=== PATIENT | male | born 1955 | race Caucasian/White ===

== ENCOUNTER → 2016-10-13 | Outpatient (CLI) | payer OTHER ==
[~2016-10-13] MED LIST: AUGM500T7 OR; LISI-357 PO; LORTA5 PO; PRED5SOL OR
== END ==
LOC: CLAB 10:00
PROVIDERS: ATTEND Specialist
DX: B18.2 Chronic viral hepatitis C (principal); M02.84 Other reactive arthropathies, hand; R60.0 Localized edema; M12.9 Arthropathy, unspecified; F43.21 Adjustment disorder with depressed mood; E29.1 Testicular hypofunction
CPT/HCPCS: 36415; 82140

== ENCOUNTER 2016-12-23 12:03 | Observation (INO) | payer OTHER ==
[~2016-12-23] VITALS: Ht 170.2 cm; Wt 80.0 kg
[2016-12-23] VITALS (7 sets, daily range): BP systolic 130–155; BP diastolic 65–92; PULSE 61–104; RESP 16–20; TEMP 97.5–99.3; O2SAT 95–99
[2016-12-23 12:54] LABS: AUTOMATED NEUTROPHIL # 7.8 TH/MM3 (1.8-7.7); BASOPHIL # 0.1 TH/MM3 (0-0.2); BASOPHIL % 0.5 % (0.0-2.0); EOSINOPHIL # 0.1 TH/MM3 (0-0.4); EOSINOPHIL % 0.7 % (0.0-4.0); HEMATOCRIT 43.4 % (39.0-51.0); HEMO FLAGS DIFF FINAL; LYMPH % 15.8 % (9.0-44.0); LYMPHOCYTE # 1.7 TH/MM3 (1.0-4.8); MEAN CELL VOLUME 82.5 FL (80.0-100.0); MEAN CORPUSCULAR HEMOGLOBIN 27.5 PG (27.0-34.0); MEAN CORPUSCULAR HGB CONC 33.3 % (32.0-36.0); MONO % 12.2 % (0.0-8.0); NEUT % 70.8 % (16.0-70.0); PLATELET COUNT 247 TH/MM3 (150-450); RED BLOOD COUNT 5.26 MIL/MM3 (4.50-5.90); RED CELL DISTRIBUTION WIDTH 13.9 % (11.6-17.2)
[2016-12-23 13:03] LABS: INTERNATIONAL NORMALIZED RATIO 1.1 RATIO; PROTHROMBIN TIME - PATIENT 11.7 SEC (9.8-11.6)
--- NOTE | 2016-12-23 13:12 | RADRPT ---
EXAM DATE/TIME: 12/23/2016 13:00 [facility] COMPARISON: No previous studies available for comparison. INDICATIONS : Chest pain MEDICAL HISTORY : Hepatitis C. SURGICAL HISTORY : None. ENCOUNTER: Initial ACUITY: 2 days PAIN SCORE: 7/10 LOCATION: chest FINDINGS: PA and lateral views of the chest demonstrate the lungs to be symmetrically aerated without evidence of mass, infiltrate or effusion. The cardiomediastinal contours are unremarkable. Osseous structure s are intact. CONCLUSION: No acute disease. Derrick Aparicio MD on December 23, 2016 at 13:10 Board Certified Radiologist. This report was verified electronically.
[2016-12-23 13:15] LABS: ANION GAP 5 MEQ/L (5-15); BICARBONATE 27.6 MEQ/L (21.0-32.0); BLOOD UREA NITROGEN 19 MG/DL (7-18); CHLORIDE 104 MEQ/L (98-107); GLOMERULAR FILTRATION RATE 91 ML/MIN (>89); POTASSIUM 3.9 MEQ/L (3.5-5.1); SODIUM (NA) 137 MEQ/L (136-145)
[2016-12-23 13:36] LABS: CREATINE KINASE 39 U/L (39-308)
[2016-12-23] MEDS ORDERED: ASPI81CH37 CHEW (13:38)
[2016-12-23] MEDS ORDERED: [UNRECOGNIZED DRUG - OTHER] (13:38)
[2016-12-23] MEDS ORDERED: BUPR100CR PO (13:38)
--- NOTE | 2016-12-23 13:39 | PD ---
HPI Chief Complaint: Chest Pain Time Seen by Provider: 13:36 Travel History International Travel<30 days: No Contact w/Intl Traveler<30days: No Traveled to known affect area: No History of Present Illness HPI 61-year-old male patient presents to the emergency room for evaluation of chest pain that started last night. Patient states the pain makes him feel like he can't take a deep breath. Patient also reports that his left lower leg is swollen. The pain does not radiate anywhere and is constant and sharp in nature. Patient denies any fevers, chills, malaise, dysuria, diaphoretic episodes, abdominal pain, nausea, vomiting, diarrhea or lightheadedness. The patient had a stress test approximately 10 years ago that he believes was normal. Patient denies any history of AR, CVA/TIA or PE. Patient states his only major medical history is hepatitis C and he just recently started a medication regimen for treatment. PFSH Past Medical History Arthritis: Yes (RHEUMATOID) Autoimmune Disease: Yes Blood Disorders: No Depression: Yes Cancer: No Cardiovascular Problems: Yes ("LEFT BUNDLE BRANCH BLOCK") Endocrine: No GERD: Yes Hiatal Hernia: Yes (INGUINAL HERNIAS) Hypertension: Yes Immune Disorder: No Inguinal Hernia: Yes Musculoskeletal: No Neurologic: No Reproductive: No Immunizations Current: No Past Surgical History Abdominal Surgery: Yes (BILATERAL HERNIA REPAIR FEB 2011) Endocrine Surgery: Yes (LIVER BIOPSY) Pacemaker: No Other Surgery: Yes Social History Alcohol Use: No Tobacco Use: No Substance Use: No Allergies-Medications (Allergen,Severity, Reaction): Coded Allergies: No Known Allergies (Verified , 12/23/16) Reported Meds & Prescriptions Reported Meds & Active Scripts Active Reported Aspirin Low Dose (Aspirin) 81 Mg Chew 81 Mg CHEW DAILY [[place]] DAILY Wellbutrin SR 12 HR (Bupropion HCl) 100 Mg Tab Unknown Dose PO Q12HR Review of Systems Except as stated in HPI: all other systems reviewed are Neg Physical Exam Narrative GENERAL: Well-nourished well-developed 51-year-old male in no acute distress SKIN: Focused skin assessment warm/dry. HEAD: Atraumatic. Normocephalic. EYES: Pupils equal and round. No scleral icterus. No injection or drainage. ENT: No nasal bleeding or discharge. Mucous membranes pink and moist. NECK: Trachea midline. No JVD. CARDIOVASCULAR: Regular rate and rhythm. No murmur appreciated. RESPIRATORY: No accessory muscle use. Clear to auscultation. Breath sounds equal bilaterally. GASTROINTESTINAL: Abdomen soft, non-tender, nondistended. Hepatic and splenic margins not palpable. MUSCULOSKELETAL: No obvious deformities. No clubbing. No cyanosis. No edema. NEUROLOGICAL: Awake and alert. No obvious cranial nerve deficits. Motor grossly within normal limits. Normal speech. PSYCHIATRIC: Appropriate mood and affect; insight and judgment normal. Data Data Last Documented VS Vital Signs Date Time Temp Pulse Resp B/P (MAP) Pulse Ox O2 Delivery O2 Flow Rate FiO2 12/23/16 13:42 70 20 130/65 (86) 97 12/23/16 13:41 Room Air 12/23/16 12:04 99.3 Orders Orders Electrocardiogram (12/23/16 12:13) Complete Blood Count With Diff (12/23/16 12:13) Basic Metabolic Panel (Bmp) (12/23/16 12:13) Ckmb (Isoenzyme) Profile (12/23/16 12:13) Troponin I (12/23/16 12:13) Iv Access Insert/Monitor (12/23/16 12:13) Ecg Monitoring (12/23/16 12:13) Oxygen Administration (12/23/16 12:13) Oximetry (12/23/16 12:13) Prothrombin Time / Inr (Pt) (12/23/16 12:13) Chest, Pa & Lat (12/23/16 12:13) Ct Pulmonary Angiogram (12/23/16 13:41) Us Leg Venous Doppler Bilat (12/23/16 ) Iohexol 350 Inj (Omnipaque 350 Inj) (12/23/16 14:34) Aspirin (Aspirin) (12/23/16 15:15) Admit Order (Ed Use Only) (12/23/16 16:14) Labs Laboratory Tests Test 12/23/16 12:45 White Blood Count 11.0 TH/MM3 Red Blood Count 5.26 MIL/MM3 Hemoglobin 14.5 GM/DL Hematocrit 43.4 % Mean Corpuscular Volume 82.5 FL Mean Corpuscular Hemoglobin 27.5 PG Mean Corpuscular Hemoglobin Concent 33.3 % Red Cell Distribution Width 13.9 % Platelet Count 247 TH/MM3 Mean Platelet Volume 8.5 FL Neutrophils (%) (Auto) 70.8 % Lymphocytes (%) (Auto) 15.8 % Monocytes (%) (Auto) 12.2 % Eosinophils (%) (Auto) 0.7 % Basophils (%) (Auto) 0.5 % Neutrophils # (Auto) 7.8 TH/MM3 Lymphocytes # (Auto) 1.7 TH/MM3 Monocytes # (Auto) 1.3 TH/MM3 Eosinophils # (Auto) 0.1 TH/MM3 Basophils # (Auto) 0.1 TH/MM3 CBC Comment DIFF FINAL Differential Comment Prothrombin Time 11.7 SEC Prothromb Time International Ratio 1.1 RATIO Blood Urea Nitrogen 19 MG/DL Creatinine 0.85 MG/DL Random Glucose 118 MG/DL Calcium Level 9.7 MG/DL Sodium Level 137 MEQ/L Potassium Level 3.9 MEQ/L Chloride Level 104 MEQ/L Carbon Dioxide Level 27.6 MEQ/L Anion Gap 5 MEQ/L Estimat Glomerular Filtration Rate 91 ML/MIN Total Creatine Kinase 39 U/L Troponin I LESS THAN 0.02 NG/ML MDM Medical Decision Making Medical Screen Exam Complete: Yes Emergency Medical Condition: Yes Medical Record Reviewed: Yes Differential Diagnosis Differential diagnosis included are not limited to PE, AR, angina, pneumonia, DVT Narrative Course 61-year-old male presents emergency department for evaluation of chest pain that started last night. Patient states the pain made him feel like he can't take a deep breath. Patient also has unilateral swelling of his left leg. Patient denies any fevers, cough, headache, dizziness, hemoptysis, or history of blood clots. Patient recently started a medication regimen to treat his hepatitis C but otherwise does not take any daily medication. CBC, BMP, PT/INR , troponin, CK, chest x-ray, EKG, CT pulmonary angiogram, ultrasound of bilateral lower extremities ordered and pending. CBC shows no acute abnormalities BMP shows no acute abnormalities PT/INR shows no acute abnormalities TROP less than 0.02 CK within normal limits at 39 EKG shows sinus rhythm with first-degree AV block and left axis deviation heart rate 84 CXR shows no acute disease US OF SUMAN LOWER EXTREMITIES shows no evidence of DVT in either right or left lower extremity CTA 1. No CT evidence for pulmonary artery embolism. 2. Mild pulmonary artery enlargement of the main pulmonary artery which may reflect some degree of pulmonary artery hypertension. 3. Scattered peripheral subpleural chronic interstitial changes in the anterior upper lobes and lung bases bilaterally. Overall distribution and extent of abnormality is nonspecific but may reflect developing interstitial fibrosis. Consider pulmonary consultation on an outpatient basis. Based on patient's symptoms, clinical presentation, vital sign review, EKG and lab results it is clinically appropriate to admit the patient to the chest pain center for further evaluation, workup and cardiac stress test. Patient will be admitted to the chest pain. Diagnosis Primary Impression: Chest pain Qualified Codes: R07.9 - Chest pain, unspecified Admitting Information Admitting Physician Requests: Cassi Momin M[employer]I OPERATION MACHINE OPERATOR Dec 23, 2016 13:39
[2016-12-23] MEDS ORDERED: IOHEXOL 350 MG/ML 10 ML VIAL (for RAD DIAG) IVCONTRAST ONE (14:34)
[2016-12-23] MEDS ORDERED: ASPIRIN 325 MG TAB PO ONE (15:15)
--- NOTE | 2016-12-23 15:26 | RADRPT ---
EXAM DATE/TIME: 12/23/2016 14:15 [facility] COMPARISON: No previous studies available for comparison. INDICATIONS : Chest pain, worse on inspiration. IV CONTRAST: 74 cc Omnipaque 350 (iohexol) IV RADIATION DOSE: 15.48 CTDIvol (mGy) MEDICAL HISTORY : Hypertension. SURGICAL HISTORY : None. ENCOUNTER: Initial ACUITY: 2 days PAIN SCALE: 4/10 LOCATION: Bilateral chest TECHNIQUE: Volumetric scanning of the chest was performed using a pulmonary embolism protocol MIP images were re constructed. Using automated exposure control and adjustment of the mA and/or kV according to patien t size, radiation dose was kept as low as reasonably achievable to obtain optimal diagnostic quality images. DICOM format image data is available electronically for review and comparison. Follow-up recommendations for detected pulmonary nodules are based at a minimum on nodule size and pa tient risk factors according to Fleischner Society Guidelines. FINDINGS: PULMONARY ARTERIES: No filling defects are seen in the pulmonary arteries through the segmental level. Mild prominence of the main pulmonary artery measuring up to 3.4 cm. LUNGS: Scattered peripheral subpleural intralobular septal thickening and and minimal associated ground glas s opacities in the anterior upper lobes and near lung bases bilaterally. PLEURAE: There is no pleural thickening or pleural effusion. MEDIASTINUM: There is good visualization of the great vessels of the middle mediastinum. No evidence of mediastin al or hilar adenopathy/mass. MUSCULOSKELETAL: Within normal limits for patient age. MISCELLANEOUS: The visualized upper abdominal organs demonstrate no acute abnormality. CONCLUSION: 1. No CT evidence for pulmonary artery embolism. 2. Mild pulmonary artery enlargement of the main pulmonary artery which may reflect some degree of pu lmonary artery hypertension. 3. Scattered peripheral subpleural chronic interstitial changes in the anterior upper lobes and lung bases bilaterally. Overall distribution and extent of abnormality is nonspecific but may reflect deve loping interstitial fibrosis. Consider pulmonary consultation on an outpatient basis. Alexei Desai MD on December 23, 2016 at 15:17 Board Certified Radiologist. This report was verified electronically.
--- NOTE | 2016-12-23 15:59 | RADRPT ---
EXAM DATE/TIME: 12/23/2016 15:06 [facility] COMPARISON: No previous studies available for comparison. EXTERNAL COMPARISON : [facility], US LEG, RIGHT VENOUS DOPPLER, November 12, 2011 INDICATIONS : Bilateral leg edema. MEDICAL HISTORY : Hypertension. Hepatitis C. Rheumatoid arthritis. Left bundle branch block. Inguinal hernias. GERD. SURGICAL HISTORY : Liver biopsy. Bilateral hernia repair. ENCOUNTER: Initial ACUITY: 4 - 6 days PAIN SCORE: 7/10 LOCATION: Bilateral leg. TECHNIQUE: Venous ultrasound of the left and right leg was performed from the inguinal ligament to the proximal calf. Real-time, color Doppler and spectral tracing, compression and augmentation techniques were us ed. FINDINGS: RIGHT LEG: There is normal compressibility of the deep venous system from the inguinal region to the proximal ca lf. No echogenic clot is seen in the lumen of the common femoral, femoral, popliteal, and posterior tibial veins. There is a normal response of the venous system to proximal and distal augmentation an d respiration. LEFT LEG: There is normal compressibility of the deep venous system from the inguinal region to the proximal ca lf. No echogenic clot is seen in the lumen of the common femoral, femoral, popliteal, and posterior tibial veins. There is a normal response of the venous system to proximal and distal augmentation an d respiration. CONCLUSION: No evidence of lower extremity DVT on the right or left. Shaw Viera MD on December 23, 2016 at 15:56 Board Certified Radiologist. This report was verified electronically.
[2016-12-23] MEDS ORDERED: ACETAMINOPHEN 500 MG CPLT PO PRN (17:15)
[2016-12-23] MEDS ORDERED: ONDANSETRON HCL 4 MG/2 ML VIAL IV PUSH PRN (17:15)
[2016-12-23] MEDS ORDERED: NITROGLYCERIN 0.4 MG SL 25 TABS/BTL SL PRN (17:15)
[2016-12-23] MEDS ORDERED: VALA500T PO (20:23)
[2016-12-23] MEDS ORDERED: OXYC-392 PO (20:26)
[2016-12-23] MEDS ORDERED: MELO-1 PO (20:26)
[2016-12-23] MEDS ORDERED: MAVYRET PO (20:40)
[2016-12-23 21:31] LABS: CREATINE KINASE 56 U/L (39-308)
[2016-12-24 00:25] VITALS: PULSE 58
[2016-12-24 00:50] LABS: CREATINE KINASE 80 U/L (39-308)
[2016-12-24 04:02] VITALS: PULSE 61
[2016-12-24 04:46] VITALS: BP 141/75; PULSE 62; RESP 18; TEMP 98.1; O2SAT 96
[2016-12-24 06:55] VITALS: PULSE 57
--- NOTE | 2016-12-24 08:11 | HHI.HP ---
HPI Primary Care Physician Pam Razo MD Chief Complaint Chest pain History of Present Illness 61-year-old male with history of hepatitis C, GERD, and known left bundle branch block presents to emergency room for further evaluation of chest pain. Onset Tuesday evening around 7 PM. Location substernal. Characterized as a constant "soreness." No radiation of pain. No associated symptoms of nausea, vomiting, dyspnea or diaphoresis. No known precipitating factors. Relieving factors time, discomfort improving slowly over last 2 days. Denies any similar pain in the past. No particular movements or position makes pain better or worse. Taking a deep breath makes pain worse, this is also improving. Reports when pain first began he could only take small shallow breath due to pain. Now can take larger breaths before experiencing pain. Review of Systems General: No fatigue,weakness, fever, chills, recent illness, or change in appetite. Has been in his general state of health. Recently began hepatitis C curative medication. HEENT: No MOHAMUD, no vision changes CV: Current chest pain as stated above. No palpitations, intermittent leg pain , or dizziness. RESP: No SOB, cough, wheeze, or recent URI. GI: No nausea, vomiting, or bowel changes. No unintentional weight gain or weight loss : No dysuria EXT: No lower leg edema MS: No discomfort or change in ROM, no recent trauma, injury, or fall NEURO: No change in memory, dizziness, difficulty with balance, LOC, motor/ sensory deficits PSYCH: History of depression reports stable on current medication regimen. No current anxiety or situational stress. SKIN: No rashes, no concerning lesions Past Family Social History Allergies: Coded Allergies: No Known Allergies (Verified , 12/23/16) Past Medical History Hepatitis C, GERD, colon polyps, depression, rheumatoid arthritis, small bowel obstruction (completed medically) Past Surgical History None Reported Medications Reported Meds & Active Scripts Active Reported [mavyret] 40-100 Mg PO DAILY Meloxicam 15 Mg Tab 15 Mg PO DAILY Oxycodone (Oxycodone HCl) 5 Mg Tab 5 Mg PO DAILY PRN Valacyclovir (Valacyclovir HCl) 500 Mg Tab 500 Mg PO DAILY Aspirin Low Dose (Aspirin) 81 Mg Chew 81 Mg CHEW MOWEFR Wellbutrin SR 12 HR (Bupropion HCl) 100 Mg Tab 150 Mg PO Q12HR Active Ordered Medications Current Medications Medications (Trade) Dose Ordered Sig/Marty Route Start Time Stop Time Status Last Admin (Tylenol) 500 mg Q4H PRN PO 12/23/16 17:15 (Zofran Inj) 4 mg Q6H PRN IV PUSH 12/23/16 17:15 (Nitrostat Sl) 0.4 mg Q5M PRN SL 12/23/16 17:15 (Aspirin) 325 mg DAILY PO 12/24/16 09:00 Family History Father age 72 history of CHF. Mother age 70 of lung cancer. Sr. last year lung cancer, she had a congenital heart defect. Social History No known diabetes, or near he artery disease, hypertension, or hyperlipidemia. Former smoker quit 6 years ago prior to quitting smoking 1 pack daily. No alcohol since diagnosis of hepatitis C and 2008. Past cardiac testing 10 years ago exercise stress test unremarkable. Patient's field cashier is Dr. Skinny Mccormack, seen 3 months ago. No recent stress testing. Physical Exam Vital Signs Vital Signs Date Time Temp Pulse Resp B/P (MAP) Pulse Ox O2 Delivery O2 Flow Rate FiO2 12/24/16 06:55 57 12/24/16 04:46 98.1 62 18 141/75 (97) 96 12/24/16 04:02 61 12/24/16 00:25 58 12/23/16 23:53 98.1 63 18 130/69 (89) 95 12/23/16 20:37 61 12/23/16 20:17 98.0 66 18 143/72 (95) 97 12/23/16 18:22 97.5 62 16 151/71 (97) 96 12/23/16 13:42 70 20 130/65 (86) 97 12/23/16 13:41 97 Room Air 12/23/16 13:31 73 20 99 Room Air 12/23/16 13:29 64 20 155/80 (105) 99 12/23/16 12:04 99.3 104 20 137/92 (107) 97 Room Air Physical Exam GENERAL: Alert WN, WD, NAD, pleasant, male HEAD: NC, AT EYES: Sclera clear, conjunctiva without injection ENT: Mucous membranes pink and moist NECK: Supple, no masses, trachea midline CV: RRR, without murmur, rub, gallop, no JVD, S1-S2 no S3-S4. No carotid bruits. RESP: Clear lungs throughout bilateral, no crackles, wheeze, rhonchi, symmetrical chest rise, nonlabored, able to speak in full sentences ABD: Soft, NT, ND, no masses, positive bowel tones BACK: No scoliosis EXT: Pulses +24, no dependent edema MS: Normal tone 4 extremities, nontender, no obvious deformities, full range of motion NEURO: CN II through CN XII grossly intact, motor strength 5/5 PSYCH: A+O 3, flat affect, appropriate speech, appropriate mood and affect, insight and judgment SKIN: Normal turgor, normal texture, no lesions, no rashes, brisk cap refill, even hair distribution Laboratory Laboratory Tests Test 12/23/16 12:45 12/23/16 20:07 12/23/16 23:30 White Blood Count 11.0 Red Blood Count 5.26 Hemoglobin 14.5 Hematocrit 43.4 Mean Corpuscular Volume 82.5 Mean Corpuscular Hemoglobin 27.5 Mean Corpuscular Hemoglobin Concent 33.3 Red Cell Distribution Width 13.9 Platelet Count 247 Mean Platelet Volume 8.5 Neutrophils (%) (Auto) 70.8 Lymphocytes (%) (Auto) 15.8 Monocytes (%) (Auto) 12.2 Eosinophils (%) (Auto) 0.7 Basophils (%) (Auto) 0.5 Neutrophils # (Auto) 7.8 Lymphocytes # (Auto) 1.7 Monocytes # (Auto) 1.3 Eosinophils # (Auto) 0.1 Basophils # (Auto) 0.1 CBC Comment DIFF FINAL Differential Comment Prothrombin Time 11.7 Prothromb Time International Ratio 1.1 Blood Urea Nitrogen 19 Creatinine 0.85 Random Glucose 118 Calcium Level 9.7 Sodium Level 137 Potassium Level 3.9 Chloride Level 104 Carbon Dioxide Level 27.6 Anion Gap 5 Estimat Glomerular Filtration Rate 91 Total Creatine Kinase 39 56 80 Troponin I LESS THAN 0.02 LESS THAN 0.02 LESS THAN 0.02 Result Diagram: 12/23/16 1245 12/23/16 1245 Imaging Last Impressions Myocardial Perfusion Scan Nuc Med 12/24/16 0000 Signed Impressions: Service Date/Time: Saturday, December 24, 2016 10:39 - CONCLUSION: Fixed defects apex with mild hypokinesis. Negative for stress-induced ischemia. RISK CATEGORY: Low (<1%% Annual Mortality Rate) Faisal White MD FACR CT Angiography 12/23/16 1341 Signed Impressions: Service Date/Time: November 14:15 - CONCLUSION: 1. No CT evidence for pulmonary artery embolism. 2. Mild pulmonary artery enlargement of the main pulmonary artery which may reflect some degree of pulmonary artery hypertension. 3. Scattered peripheral subpleural chronic interstitial changes in the anterior upper lobes and lung bases bilaterally. Overall distribution and extent of abnormality is nonspecific but may reflect developing interstitial fibrosis. Consider pulmonary consultation on an outpatient basis. Alexei Desai MD Chest X-Ray 12/23/16 1213 Signed Impressions: Service Date/Time: November 13:00 - CONCLUSION: No acute disease. Derrick Aparicio MD Lower Extremity Ultrasound 12/23/16 0000 Signed Impressions: Service Date/Time: November 15:06 - CONCLUSION: No evidence of lower extremity DVT on the right or left. Shaw Viera MD Course EKG Normal sinus bradycardia, first-degree AV block, left bundle branch block Caprini VTE Risk Assessment Caprini VTE Risk Assessment: No/Low Risk (score <= 1) Caprini Risk Assessment Model Point Value = 1 Point Value = 2 Point Value = 3 Point Value = 5 Age 41-60 Minor surgery BMI > 25 kg/m2 Swollen legs Varicose veins or History of unexplained or recurrent spontaneous Oral contraceptives or hormone replacement Sepsis (< 1 month) Serious lung disease, including pneumonia (< 1 month) Abnormal pulmonary function Acute myocardial infarction Congestive heart failure (< 1 month) History of inflammatory bowel disease Medical patient at bed rest Age 61-74 Arthroscopic surgery Major open surgery (> 45 min) Laparoscopic surgery (> 45 min) Malignancy Confined to bed (> 72 hours) Immobilizing plaster cast Central venous access Age >= 75 History of VTE Family history of VTE Factor V Leiden Prothrombin [id number] Lupus anticoagulant Anticardiolipin antibodies Elevated serum homocysteine Heparin-induced thrombocytopenia Other congenital or acquired thrombophilia Stroke (< 1 month) Elective arthroplasty Hip, pelvis, or leg fracture Acute spinal cord injury (< 1 month) Prophylaxis Regimen Total Risk Factor Score Risk Level Prophylaxis Regimen 0-1 Low Early ambulation 2 Moderate Order ONE of the following: *Sequential Compression Device (SCD) *Heparin 5000 units SQ BID 3-4 Higher Order ONE of the following medications: *Heparin 5000 units SQ TID *Enoxaparin/Lovenox 40 mg SQ daily (WT < 150 kg, CrCl > 30 mL/min) *Enoxaparin/Lovenox 30 mg SQ daily (WT < 150 kg, CrCl > 10-29 mL/min) *Enoxaparin/Lovenox 30 mg SQ BID (WT < 150 kg, CrCl > 30 mL/min) AND/OR *Sequential Compression Device (SCD) 5 or more Highest Order ONE of the following medications: *Heparin 5000 units SQ TID (Preferred with Epidurals) *Enoxaparin/Lovenox 40 mg SQ daily (WT < 150 kg, CrCl > 30 mL/min) *Enoxaparin/Lovenox 30 mg SQ daily (WT < 150 kg, CrCl > 10-29 mL/min) *Enoxaparin/Lovenox 30 mg SQ BID (WT < 150 kg, CrCl > 30 mL/min) AND *Sequential Compression Device (SCD) Assessment and Plan Assessment and Plan #1 Atypical chest pain-admitted to chest pain center. Ruled out with 3 sets EKGS , cardiac enzymes, and monitored overnight. Seen and evaluated by Dr. Skinny Mccormack. Chest discomfort not typical cardiac discomfort, constant, hurting to take a deep breath only but will proceed with chemical stress test due to risk factors. If testing unremarkable, will discharge later this afternoon. Patient agreeable to plan of care. #2 Hepatitis C-continue antiviral and hepatitis C curative medication, follow up with PCP #3 Depression-continues Wellbutrin. Poly Disla Dec 24, 2016 08:11
[2016-12-24] MEDS ORDERED: ASPIRIN 81 MG CHEW TAB CHEW SCH (08:15)
[2016-12-24 08:44] VITALS: BP 116/63; PULSE 66; RESP 16; TEMP 98.2; O2SAT 95
[2016-12-24] MEDS ORDERED: MELOXICAM 15 MG TAB PO SCH (09:00)
[2016-12-24] MEDS ORDERED: valACYclovir HCL 500 MG TAB PO SCH (09:00)
[2016-12-24] MEDS ORDERED: buPROPion HCL 150 MG SUSTAINED RELEASE TAB PO SCH (09:00)
[2016-12-24] MEDS ORDERED: buPROPion HCL 100 MG SUSTAINED RELEASE TAB PO SCH (09:00)
[2016-12-24] MEDS ORDERED: ASPIRIN 325 MG TAB PO SCH (09:00)
[2016-12-24] MEDS ORDERED: MAVYRET PO SCH ×2 (09:00→11:00)
[2016-12-24] MEDS ORDERED: REGADENOSON INJ 0.4 MG/5 ML SYR ONE (11:33)
--- NOTE | 2016-12-24 12:59 | RADRPT ---
EXAM DATE/TIME: 12/24/2016 10:39 [facility] COMPARISON: No previous studies available for comparison. INDICATIONS : Chest pain with dyspnea. Angina. Left bundle branch block. DOSE: 27.2 mCi Tc99m Myoview at stress. 8.7 mCi Tc99m Myoview at rest. 0.4 mg Lexiscan STRESS SYMPTOMS: Dyspnea. EJECTION FRACTION: 45% MEDICAL HISTORY : None SURGICAL HISTORY : Inguinal hernia repair. ENCOUNTER: Initial ACUITY: 1 day PAIN SCALE: 7/10 LOCATION: Substernal chest TECHNIQUE: The patient underwent pharmacologic stress with infusion of prescribed dose. Continuous ECG tracing was monitored during stress. Gated SPECT imaging was performed after stress and conventional SPECT i maging was performed at rest. The examination was performed on a SPECT/CT scanner, both attenuation and non-corrected datasets were reviewed. FINDINGS: DISTRIBUTION: There is enlarged fixed defect involving the apex. There is no redistribution suggest ischemia. GATED STUDY: There is intact wall motion and thickening without hypokinetic or dyskinetic segments. CONCLUSION: Fixed defects apex with mild hypokinesis. Negative for stress-induced ischemia. RISK CATEGORY: Low (<1% Annual Mortality Rate) Faisal White MD FACR on December 24, 2016 at 12:55 Board Certified Radiologist. This report was verified electronically.
[2016-12-24 13:00] VITALS: PULSE 69
--- NOTE | 2016-12-24 13:47 | HHI.DCPOC ---
Discharge Care Plan Diagnosis: (1) Hepatitis C, chronic (2) Musculoskeletal chest pain Goals to Promote Your Health * To prevent worsening of your condition and complications * To maintain your health at the optimal level Directions to Meet Your Goals Take your medications as prescribed Follow your dietary instruction Follow activity as directed Keep your appointments as scheduled Take your immunizations and boosters as scheduled If your symptoms worsen call your PCP, if no PCP go to Urgent Care Center or Emergency Room Smoking is Dangerous to Your Health. Avoid second hand smoke Call the 24-hour hour crisis hotline for domestic abuse at [facility]la Dec 24, 2016 13:47
--- NOTE | 2016-12-24 13:48 | EKG ---
Date Performed: 12/23/2016 Time Performed: 23:56:44 PTAGE: 61 years EKG: SINUS BRADYCARDIA WITH FIRST DEGREE AV BLOCK Left bundle branch block Left axis deviation PREVIOUS TRACING : 12/23/2016 20.25 Since previous tracing, no significant change noted DOCTOR: Elias Curtis Interpretating Date/Time 12/24/2016 13:47:38
--- NOTE | 2016-12-24 13:53 | EKG ---
Date Performed: 12/23/2016 Time Performed: 20:25:45 PTAGE: 61 years EKG: Sinus rhythm WITH FIRST DEGREE AV BLOCK MARKED LEFT AXIS DEVIATION Left bundle branch block PREVIOUS TRACING : 12/23/2016 12.34 DOCTOR: Elias Curtis Interpretating Date/Time 12/24/2016 13:53:20
--- NOTE | 2016-12-24 13:59 | EKG ---
Date Performed: 12/23/2016 Time Performed: 12:34:38 PTAGE: 61 years EKG: Sinus rhythm WITH FIRST DEGREE AV BLOCK MARKED LEFT AXIS DEVIATION Left bundle branch block ABNORMAL ECG PREVIOUS TRACING : 01/08/2010 23.00 Since previous tracing, no significant change noted DOCTOR: Elias Curtis Interpretating Date/Time 12/24/2016 13:58:56
--- NOTE | 2016-12-25 13:46 | TR ---
Date Performed: 12/24/2016 Time Performed: 11:36:11 DOCTOR: Deepak Fernández DRUG LIST: CLINICAL HISTORY: REASON FOR TEST: REASON FOR ENDING: OBSERVATION: CONCLUSION: Lexiscan stress test was performed under standard four minute protocol. Radionuclide was injected one minute prior to ending the test. No electrocardiographic abormalities were present to suggest ischemia. Nuclear imaging and interpretation are pending. COMMENTS:
== END 2016-12-24 17:04 | disposition home or self-care (01) ==
LOC: NEPC 12:03 → NEDA 16:17 → NEPFCDU 17:58
PROVIDERS: ADMIT Internal Medicine Cardiovascular Disease; ATTEND Internal Medicine Cardiovascular Disease
DX: B18.2 Chronic viral hepatitis C (principal); R07.89 Other chest pain; R00.1 Bradycardia, unspecified; I10 Essential (primary) hypertension; I44.7 Left bundle-branch block, unspecified; I44.0 Atrioventricular block, first degree; K21.9 Gastro-esophageal reflux disease without esophagitis; M06.9 Rheumatoid arthritis, unspecified; Z86.010 Personal history of colon polyps; Z87.891 Personal history of nicotine dependence
CPT/HCPCS: 71020; 71275; 78452; 80048; 82550; 84484; 85025; 85610; 93005; 93017; 93970; 99285; A9502; G0378; J2785; Q9967